=== PATIENT | female | born 2005 | race Caucasian/White ===

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

== ENCOUNTER 2023-05-03 21:19 | Emergency (ER) | payer MEDICAID, SELFPAY ==
[2023-05-03 21:20] VITALS: BP 147/90; PULSE 89; RESP 16; TEMP 36.4; O2SAT 99; BMI 104.0
--- NOTE | 2023-05-03 21:38 | EDS_ITS ---
HPI History of Present Illness Chief Complaint: Ear Problem Informant: patient Narrative Narrative: Patient presents with left-sided earache. Patient states that for couple days or so she has had soreness near the left ear and left upper jaw area. 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 She sometimes gets jaw pain but this feels different. She also occasionally feels like there is a little clicking in that area. She also has a wisdom tooth that is intermittently coming in on her left lower jaw. She has a history of ear infections. But she is not having fevers or chills. Her hearing has not changed. No trauma to the ear. No coughing or congestion. No trouble swallowing. PFSH PFSH Medical History no medical history Home Medications [id number] 3.3 mg-3 mg-10 mg-0.5 mg/mL ear drops,susp ( Cortisporin-TC) 4 drp LEFT EAR TID #10 mL 05/03/23 [Rx Last Taken Unknown] Allergy/AdvReac Type Severity Reaction Status Date / Time Penicillins Allergy NEEDS Verified 05/03/23 21:20 FOLLOW-UP Surgical History no surgical history Social History Smoking Status: Never smoker substance use type: does not use ROS ROS ED Constitutional Constitutional ED: Denies chills, fever(s) or sweats Eyes Eyes: Denies change in vision ENT ENT ED: Reports ear pain; Denies rhinorrhea or sore throat Cardiovascular Cardiovascular: Denies chest pain Respiratory/Chest Respiratory/Chest: Denies cough or dyspnea Musculoskeletal Musculoskeletal: Denies neck pain Integumentary Denies rash Neurologic Neurologic: Denies headache(s) or paresthesias Hematologic/Lymphatic Hematologic/Lymphatic: Denies lymphadenopathy Allergic/Immunologic Allergic/Immunologic ED: Denies mouth swelling, tongue swelling or urticaria EXAM Physical Exam Narrative Exam Narrative: CONSTITUTIONAL: Patient is nontoxic in appearance. The patient looks comfortable. Work of breathing looks normal. HEENT: No trauma or rash. No external swelling. Oropharynx overall looks normal. She does not have dental tenderness. There is no sign of pericoronitis. She has very mild left TMJ tenderness. But she also has more tenderness pressing on the anterior tragus. The canal has a little bit of wax at the base and mid very mild amount of erythema but is not swollen. The tympanic membrane actually looks totally normal. No fluid and no redness or sign of bulging or infection. EYES: No conjunctival injection. No proptosis. Lids are not swollen. NECK:No JVD. No stridor. There are no lymphadenopathy. Cardiorespiratory: Easy unlabored breathing and normal pulse. Skin shows no rashes or pallor. Const Vital Signs: 05/03/23 21:20 Temperature 97.5 F L Temperature Source Temporal Pulse Rate 89 Respiratory Rate 16 Blood Pressure 147/90 H Blood Pressure Mean 109 Pulse Ox 99 MDM MDM MDM Narrative Medical decision making narrative: Patient's primary concern was an otitis media. This is not indicated by exam. I think her symptoms could be from slight discomfort from the wisdom tooth coming in but there is no sign of pericoronitis or need for antibiotics. There does appear to be a component of TMJ but slightly red canal also. I will use Cortisporin otic drops. She can take Tylenol Motrin for the soreness. She is comfortable with this plan. Discharge Plan Triage Chief Complaint: Ear Problem ED Provider: Giovanni Feliciano Dx/Rx/DC Orders Clinical Impression: Otitis externa, Jaw pain Instructions: ED TMJ Syndrome, ED External Ear Infection (Adult) Prescriptions: New Cortisporin-TC 3.3-3-10-0.5 mg/mL drops,suspension 4 drp LEFT EAR TID Qty: 10 0RF Primary Care Provider: Care Physician,No Primary Referrals: Mesha Shea MD [Med Staff - [employer]] - 3-5 Days if not improving Care Physician,No Primary [Primary Care Provider] - Disposition Disposition: Home, Self Care
== END 2023-05-03 21:55 | disposition home or self-care (01) ==
LOC: ED 21:55
PROVIDERS: Emergency Provider Emergency Medicine; Visit Provider Emergency Medicine
DX: H60.92 Unspecified otitis externa, left ear (principal); R68.84 Jaw pain
CPT/HCPCS: 99282

== ENCOUNTER 2024-04-27 01:14 | Emergency (ER) | payer MEDICAID, SELFPAY ==
[2024-04-27 01:14] VITALS: BP 142/81; PULSE 91; RESP 16; TEMP 36.3; O2SAT 96; BMI 48.5
--- NOTE | 2024-04-27 01:30 | EDS_ITS ---
HPI History of Present Illness Chief Complaint: Headache Narrative Narrative: Chief complaint and HPI: Headache. 19-year-old female with no significant past medical history presents for evaluation of headache. Patient states she has no true history/diagnosis of migraines but that she periodically gets headaches with associated photophobia and phonophobia. Intermittent nausea. Patient states her mother and father have a history of migraines. Both with auras. Patient denies any auras with her headaches. She denies any trauma or injury to the head. Patient states she woke up on Tuesday with a headache. She states the headache has been waxing and waning in intensity and has disappeared at times. She states usually she can sleep off her headaches however this headache keeps reoccurring. She has taken Tylenol and Excedrin with some relief. She denies any fever, chills, URI symptoms, cough, vision changes, numbness/tingling, weakness. Patient states that she has not sexually active and has not had intercourse in years. No chance of . Review of systems: See HPI Medications: As listed on the chart Allergies: As listed on the chart PFSH: Per chart Vital signs: As listed on the chart. Reviewed. Physical exam: Gen: A&O x3, NAD but sitting in the room with the lights off Head: Normocephalic, atraumatic Eyes: No sclera icterus, conjunctiva clear, PERRL, EOMI ENT: TMs clear BL, moist mucous membranes, posterior oropharynx unremarkable, no facial tenderness or sinus pain Neck: Trachea midline, No JVD, Full ROM, No meningismus CV: RRR, no murmurs, no peripheral edema Resp: Lungs CTA BL, no w/r/c Musc: Full ROM, no deformity Skin: Warm, dry, no rash Neuro: Alert, oriented, grossly intact, sensation intact Psych: Cooperative, appropriate mood and affect PFSH PFSH Medical History no medical history Home Medications ?Medication ?Instructions ?Recorded ?Last Taken ?Type NK 04/27/24 Unknown History Allergy/AdvReac Type Severity Reaction Status Date / Time Penicillins Allergy NEEDS Verified 05/03/23 21:20 FOLLOW-UP clindamycin AdvReac PT UNSURE Verified 04/27/24 01:15 OF REACTION Surgical History no surgical history Social History Smoking Status: Never smoker substance use type: does not use EXAM Physical Exam Const Vital Signs: 04/27/24 01:14 Temperature 97.3 F L Temperature Source Oral Pulse Rate 91 Respiratory Rate 16 Blood Pressure 142/81 H Blood Pressure Mean 101 Pulse Ox 96 Oxygen Delivery Method Room Air MDM MDM MDM Narrative Medical decision making narrative: 19-year-old female presents for evaluation of headache. Family history of migraines. Denies any trauma. Denies acute onset of headache reaching maximal intensity in under one hour. This is neither the worst headache that they have ever experienced, nor was the onset timed with exertional activity or trauma. Patient has not experienced any fever, unusual neck pain or stiffness, syncope, or near syncope. They deny numbness, tingling, or weakness of the extremities. They also deny personal history of intracranial hemorrhage (including SAH), aneurysm, or AV malformation. Differential diagnosis includes but is not limited to tension headache, migraine headache. I do not think any emergent yanet ging is needed at this time. Due to fluid shortage will not give NS bolus patient can tolerate oral intake. Toradol, Reglan, Benadryl ordered for symptoms. Patient denies being sexually active in years. She states there is no chance she is . I did explain to her that if she is and I give her Toradol this can cause complications. She understands and endorses no chance of . On reevaluation, patient's headache has improved. Patient is stable to discharge home. Suspect migraine headache. Patient was told to follow-up with her PCP. She confirmed understanding. Tylenol Motrin as needed for pain. Impression: 1. Headache, suspect migraine headache Discharge Plan Triage Chief Complaint: Headache ED Provider: Lon Bear Dx/Rx/DC Orders Prescriptions: No Action NK Primary Care Provider: Care Physician,No Primary Referrals: Care Physician,No Primary [Primary Care Provider] - Print Language: Namibian
[2024-04-27] MEDS: Ketorolac 15 MG/ML Vial IV (01:38)
[2024-04-27] MEDS: Metoclopramide 10 MG/2 ML Vial IV (01:38)
[2024-04-27] MEDS: DiphenhydrAMINE 50 MG/ML Syringe 25 MG IV (01:39)
== END 2024-04-27 02:51 | disposition home or self-care (01) ==
PROVIDERS: Emergency Provider Surgery; Visit Provider Surgery
DX: R51.9 Headache, unspecified (principal); R11.0 Nausea
CPT/HCPCS: 96374; 96375; 99282; A4216

== ENCOUNTER 2024-07-23 15:07 | Emergency (ER) | payer MEDICAID, SELFPAY ==
[2024-07-23 15:08] VITALS: BP 142/104; PULSE 127; RESP 16; TEMP 37.4; O2SAT 100; BMI 46.9
[2024-07-23 15:10] VITALS: BP 142/104; PULSE 127; RESP 16; TEMP 37.4; O2SAT 100
--- NOTE | 2024-07-23 17:19 | RAD_ITS ---
PROCEDURE: PA and lateral chest radiographs, two views REASON FOR EXAM: Cough and fever TECHNIQUE: PA and lateral chest radiographs were obtained. COMPARISON: 10/13/2021 FINDINGS: The cardiomediastinal silhouette is stable. Mild degenerative changes in the spine. No focal airspace consolidation or pleural effusion. Some coarse markings project in the lower lungs. RAD/Chest PA and Lateral IMPRESSION: There are some coarse markings in the lower lungs, which could be due to viral infection or bronchitis. No focal pneumonia or sizable pleural effusion is demonstrated. Follow-up studies as clinically jane anted. Reading Location: [facility]
--- NOTE | 2024-07-23 18:21 | EX.ED.VIS.UR ---
HPI HPI - URI History of Present Illness Chief Complaint: Cough Detail of Chief Complaint: Patient presents with flulike symptoms that started several days ago. Harmony Informant: patient Onset/Context/Timing Onset: Days (3-4) Context: Sudden Onset Timing: Continuous and Waxes and wanes Quality: Flulike symptoms Location: Upper respiratory Current Severity: Mild Maximum Severity: Moderate Worsened by: Not Worsened By Swallowing, Eating Solids or Drinking Liquids Relieved by: Not Relieved By Tylenol or NSAIDs Associated Symptoms Associated Symptoms: Positive for Nasal Congestion, Headache, Myalgias, Diarrhea, Shortness of Breath, Chest Pain (With breathing) and Nonproductive cough; Negative for Sinus Pressure, Nausea or Vomiting Narrative Narrative: Patient is a 20-year-old female. She presents with flulike symptoms. She had a negative COVID test at doctor's office. No other tests were done per patient. She reports headache. She denies double vision blurred vision loss of vision. Nuys photophobia, neck pain or neck stiffness. She does endorse rhinorrhea, congestion postnasal drainage. She also endorses sore throat. She does have a cough which is nonproductive. She states she has had some intermittent wheezing. She denies abdominal pain. She denies nausea or vomiting. She does endorse 3 episodes of loose watery stool. 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 She reports myalgias arthralgias. She denies rash. Prior similar symptoms: No Recent Illness/Hospitalization: No ROS ROS ED Constitutional Constitutional ED: Reports chills, fever(s) and subjective; Denies sweats Eyes Eyes: Denies blurry vision, change in vision or diplopia ENT ENT ED: Reports rhinorrhea and sore throat; Denies ear pain Cardiovascular Cardiovascular: Reports chest pain; Denies orthopnea, palpitations, paroxysmal nocturnal dyspnea or racing heartbeat Respiratory/Chest Respiratory/Chest: Reports cough and dyspnea; Denies dyspnea on exertion, orthopnea, paroxysmal nocturnal dyspnea or sputum Gastrointestinal Gastrointestinal: Reports vomiting; Denies abdominal pain, diarrhea or nausea Genitourinary Genitourinary ED: Denies dysuria, hematuria or urinary frequency Musculoskeletal Musculoskeletal: Denies arthralgias or myalgias Integumentary Denies abscess or rash Neurologic Neurologic: Reports weakness; Denies headache(s) or paresthesias Hematologic/Lymphatic Hematologic/Lymphatic: Denies easy bleeding or easy bruising PFSH [facility] Medical History no medical history no medical history Home Medications ?Medication ?Instructions ?Recorded ?Last Taken ?Type NK 04/27/24 Unknown History Allergy/AdvReac Type Severity Reaction Status Date / Time Penicillins Allergy HIVES Verified 07/23/24 15:08 clindamycin AdvReac PT UNSURE Verified 07/23/24 15:08 OF REACTION Family History no significant family his Surgical History no surgical history no surgical history Social History Smoking Status: Never smoker substance use type: does not use EXAM Physical Exam Const Vital Signs: 07/23/24 15:08 07/23/24 15:10 07/23/24 18:48 Temperature 99.3 F H 99.3 F H Temperature Source Oral Oral Pulse Rate 127 H 127 H Respiratory Rate 16 16 Respiratory Effort Normal Non-Labored Blood Pressure 142/104 H 142/104 H Blood Pressure Mean 116 116 Pulse Ox 100 100 Oxygen Delivery Method Room Air Room Air Room Air 07/23/24 18:49 Temperature Temperature Source Pulse Rate 109 H Respiratory Rate Respiratory Effort Blood Pressure 147/90 H Blood Pressure Mean 109 Pulse Ox 98 Oxygen Delivery Method Room Air Vitals are marked for elevated blood pressure and tachycardia. Temperature is elevated 99.3. Positive well nourished and well developed Constitutional Narrative: BMI is 46.9. Patient appears ill. She does not appear in distress General Appearance ED: well developed and pallor; Negative for cyanotic or diaphoretic HEENT Reports moist mucous membranes normocephalic Face and Sinus: Negative for sinus tenderness Throat: posterior oropharynx normal Eyes PERRL and EOMs intact bilaterally General Eye ED: Negative for pale conjunctiva or scleral icterus Resp normal respiratory effort and clear to auscultation bilaterally Cardio S1 normal heart sound, S2 normal heart sound and no murmurs Rate: tachycardic Rhythm: regular rhythm GI non-tender, non-distended and no masses Extremity normal to inspection and full ROM Neuro oriented x3, CN's II-XII intact bilaterally and no sensory deficits noted Sensorium / Orientation: alert Psych mental status grossly normal Skin General Skin Exam: pallor Rashes: no rashes Trauma: abrasion MDM MDM MDM Narrative Medical decision making narrative: Differential diagnosis is viral versus bacterial infection. Since she has a cough has had some wheezing tachycardic will obtain chest x-ray to review for pneumonia. Radiography Chest X-Ray - ED: 2 View and Read by ED Physician (Cardiac silhouette size normal. Lung parenchyma normal. Hilum is normal. Osseous structures are normal. There is independent review interpreted by me at 1822) Diagnostic Testing: Clinical Impression(s) from Imaging Studies Chest X-Ray 07/23/24 17:19 IMPRESSION: There are some coarse markings in the lower lungs, which could be due to viral infection or bronchitis. No focal pneumonia or sizable pleural effusion is demonstrated. Follow-up studies as clinically warranted. [facility] Rad[facility] report was reviewed. Treatment and Re-Evaluation Narrative: Patient states symptoms started Tuesday. In light of this we will give her the rest of the week off so that she does not infect other teachers or students. Discharge Plan Triage Chief Complaint: Cough ED Provider: Haider Dow Dx/Rx/DC Orders Clinical Impression: Influenza A, Sinus tachycardia seen on monitoring tech, BMI 45.0-49.9, adult Instructions: ED Influenza (Adult) Prescriptions: No Action NK Stand Alone Forms: ED Work / School Excuse Primary Care Provider: Mike Borrero MD Referrals: Mike Borrero MD [Other] - 1 Week if not improving Print Language: German Disposition Disposition: Home, Self Care
[2024-07-23 18:49] VITALS: BP 147/90; PULSE 109; O2SAT 98
[2024-07-23 19:25] VITALS: BP 160/93; PULSE 99; RESP 18; TEMP 37.3; O2SAT 99
== END 2024-07-23 19:26 | disposition home or self-care (01) ==
PROVIDERS: Emergency Provider Emergency Medicine; Visit Provider Emergency Medicine
DX: J10.1 Influenza due to other identified influenza virus with other respiratory manifestations (principal); R00.0 Tachycardia, unspecified
CPT/HCPCS: 71046; 87631; 99282

== ENCOUNTER 2024-09-02 16:57 | Emergency (ER) | payer MEDICAID, SELFPAY ==
[2024-09-02 16:58] VITALS: BP 125/81; PULSE 81; RESP 20; TEMP 36.3; O2SAT 100; BMI 47.7
--- NOTE | 2024-09-02 17:17 | EDS_ITS ---
HPI History of Present Illness Chief Complaint: Rash PFSH PFSH Medical History no medical history Home Medications ?Medication ?Instructions ?Recorded ?Last Taken ?Type NK 04/27/24 Unknown History Allergy/AdvReac Type Severity Reaction Status Date / Time Penicillins Allergy HIVES Verified 09/02/24 16:59 clindamycin AdvReac PT UNSURE Verified 09/02/24 16:59 OF REACTION Surgical History no surgical history Social History Smoking Status: Never smoker substance use type: does not use EXAM Physical Exam Const Vital Signs: 09/02/24 16:58 Temperature 97.4 F L Temperature Source Temporal Pulse Rate 81 Respiratory Rate 20 H Blood Pressure 125/81 H Blood Pressure Mean 95 Pulse Ox 100 Oxygen Delivery Method Room Air [facility] MDM Narrative Medical decision making narrative: HISTORY OF PRESENT ILLNESS: Chief complaint: Hives 20-year-old with concern for itchy red hives on arms back and abdomen. She n otes she took 2 Benadryl 1 hour ago. REVIEW OF SYSTEMS: Pertinent positives: Hives Pertinent negatives: Throat tightness, difficulty breathing, nausea PHYSICAL EXAM: Nursing triage notes reviewed, Vital signs reviewed Constitutional: please see mdm HENT: MMM, no posterior pharyngeal edema Eyes: Pupils equal round and reactive to light, Extraocular muscles intact Neck: No stridor, no JVD, full neck ROM Lungs: Clear to auscultation, No wheezing or rales. No increased work of breathing, no conversational dyspnea, no accessory muscle use, no nasal flaring. No respiratory distress noted Heart: Regular rate and rhythm, No murmurs, No rubs and No gallops, 2+ distal pulses (radial, femoral, posterior tibial) in all extremities Extremities: No edema Skin: Urticarial rash noted bilateral arms, back and abdomen. No crepitus or bullae. No purulence noted. MEDICAL DECISION MAKING: Chief Complaint: please see HPI External records reviewed: Reviewed prior encounters, medications and allergies Factors affecting care: none Social determinants of health: none History obtained from others: none Consults: none [facility] Narrative: The patient was initially hemodynamically stable, afebrile and nontoxic- appearing I considered the following differential diagnosis: Allergy, anaphylaxis, anaphylactic shock No clinical evidence of anaphylaxis or anaphylactic shock. Will give histamine blockade and prednisone for symptomatic relief. Strict return precautions were discussed. Follow-up with PCP discussed. The patient and/or family, caregivers express understanding. The patient and/or family, caregivers agrees with the plan. Shared decision making: I will have a discussion with the patient and or visitors regarding risk/benefits of further testing or admission. They will be made aware of of the risk/benefits inherent in this decision they will be given the opportunity to voice understanding. Total critical care time today provided was at least 0 minutes. This excludes separately billable procedures. Critical care time (if documented) is secondary to the patient having high probability of clinically significant/life threatening deterioration in the patient's condition which required my urgent intervention. Impression: 1. Urticaria Dispo: Discharge home This note was generated with [employer] dictation software. It may contain incorrect words, spelling, and punctuation that were not noted in review of the chart prior to signing. Discharge Plan Triage Chief Complaint: Rash ED Provider: Brian Shetty Dx/Rx/DC Orders Prescriptions: No Action NK Primary Care Provider: NOT,DEFINED Referrals: NOT,DEFINED [Primary Care Provider] - Print Language: Cuban
[2024-09-02] MEDS: Famotidine 20 MG Tablet PO (17:43)
[2024-09-02] MEDS: predniSONE 20 MG Tablet PO (17:43)
--- NOTE | 2024-09-02 17:51 | ED.RN ---
This RN showed the patient where the bathroom was and she left without getting registered.
== END 2024-09-02 17:50 | disposition home or self-care (01) ==
LOC: ED 17:54
PROVIDERS: Emergency Provider Emergency Medicine; Visit Provider Emergency Medicine
DX: L50.9 Urticaria, unspecified (principal)
CPT/HCPCS: 99283